=== PATIENT | male | born 1950 | race Caucasian/White ===

== ENCOUNTER → 2017-07-22 | Emergency (ER) | payer OTHER ==
[~2017-07-22] VITALS: Ht 167.6 cm; Wt 72.6 kg
[~2017-07-22] MED LIST: AMOX1TAB12 PO; ASPIR 8181 MG; AUGMENTIN1 TAB.SR2 PO; AVAPRO75 MG; CALCIUM1 TAB; CATAFLAM50 MG PO; CENTRUM TABLET1 TAB; DICLOFENAC SODI50 MG PO; LIPITOR20 MG; OMEPRAZOLE20 MG PO; OMEPRAZOLE40 MG PO; TRAMADOL HCL-AP1 TAB PO; TUSSI PRES-B L120 M1 PO; VITAMIN D400 UNI1; ZANTAC150 M3 PO
== END | disposition home or self-care (01) ==
LOC: ER 19:47
DX: S83.91XA Sprain of unspecified site of right knee, initial encounter (principal); X50.0XXA Overexertion from strenuous movement or load, initial encounter; Y93.01 Activity, walking, marching and hiking; Y92.488 Other paved roadways as the place of occurrence of the external cause; Y99.8 Other external cause status

== ENCOUNTER 2017-09-06 09:23 | Outpatient (CLI) | payer OTHER | END 2017-09-06 09:26 | disposition home or self-care (01) | LOC: SONOGRAMA 09:23 | DX: R31.9 Hematuria, unspecified (principal) ==

== ENCOUNTER 2018-01-22 12:18 | Emergency (ER) | payer OTHER ==
[~2018-01-22] VITALS: Ht 170.2 cm; Wt 72.6 kg
== END 2018-01-22 19:56 | disposition home or self-care (01) ==
LOC: ER 12:18
DX: M54.6 Pain in thoracic spine (principal)

== ENCOUNTER 2018-04-30 09:11 | Outpatient (CLI) | payer OTHER | END 2018-04-30 09:13 | disposition home or self-care (01) | LOC: SONOGRAMA 09:11 | DX: N40.0 Benign prostatic hyperplasia without lower urinary tract symptoms (principal); N28.1 Cyst of kidney, acquired; R31.9 Hematuria, unspecified ==

== ENCOUNTER 2018-06-05 14:41 | Outpatient (CLI) | payer OTHER | END 2018-06-05 17:00 | disposition home or self-care (01) | LOC: RAD 14:41 | DX: Z01.812 Encounter for preprocedural laboratory examination (principal); D68.8 Other specified coagulation defects ==

== ENCOUNTER 2018-07-04 15:28 | Emergency (ER) | payer OTHER ==
[~2018-07-04] VITALS: Ht 167.6 cm; Wt 72.6 kg
== END 2018-07-04 18:09 | disposition home or self-care (01) ==
LOC: ER 15:28
DX: S50.02XA Contusion of left elbow, initial encounter (principal); W18.39XA Other fall on same level, initial encounter; Y93.89 Activity, other specified; Y92.098 Other place in other non-institutional residence as the place of occurrence of the external cause; Y99.8 Other external cause status

== ENCOUNTER 2018-07-19 07:00 | Emergency (ER) | payer OTHER ==
[~2018-07-19] VITALS: Ht 167.6 cm; Wt 76.2 kg
== END 2018-07-19 09:25 | disposition home or self-care (01) ==
LOC: ER 07:00
DX: R60.0 Localized edema (principal)

== ENCOUNTER 2019-01-15 11:11 | Emergency (ER) | payer OTHER ==
[~2019-01-15] VITALS: Ht 167.6 cm; Wt 72.6 kg
== END 2019-01-15 12:55 | disposition home or self-care (01) ==
LOC: ER 11:11
DX: R00.2 Palpitations (principal)

== ENCOUNTER 2019-06-26 10:32 | Outpatient (CLI) | payer OTHER | END 2019-06-26 10:34 | disposition home or self-care (01) | LOC: SONOGRAMA 10:32 | DX: R31.29 Other microscopic hematuria (principal) ==

== ENCOUNTER 2019-09-11 08:37 | Emergency (ER) | payer OTHER ==
[~2019-09-11] VITALS: Ht 167.6 cm; Wt 73.5 kg
[2019-09-11] MEDS ORDERED: PROTONIX40 MG PO (08:48)
[2019-09-11] MEDS ORDERED: IBU400 MG PO (09:41)
[2019-09-11] MEDS ORDERED: AIRBORNE EFFER1 EACH PO (09:41)
== END 2019-09-11 10:18 | disposition home or self-care (01) ==
LOC: ER 08:37
DX: J02.8 Acute pharyngitis due to other specified organisms (principal)

== ENCOUNTER 2020-02-27 11:29 | Emergency (ER) | payer OTHER ==
[~2020-02-27] VITALS: Ht 167.6 cm; Wt 74.4 kg
[~2020-02-27 11:29] MED LIST changes: +AIRBORNE EFFER1 EACH PO; +IBU400 MG PO; +PROTONIX40 MG PO
[2020-02-27] MEDS ORDERED: CLONAZEPAM1 GM (12:05)
== END 2020-02-27 12:51 | disposition home or self-care (01) ==
LOC: ER 11:29
DX: F41.0 Panic disorder [episodic paroxysmal anxiety] (principal); I10 Essential (primary) hypertension

== ENCOUNTER → 2020-08-12 | Outpatient (CLI) | payer OTHER ==
[~2020-08-12] MED LIST changes: +CLONAZEPAM1 GM
== END | disposition home or self-care (01) ==
LOC: SONOGRAMA 08:54 → MAMO-SONO 10:30
PROVIDERS: ATTEND Urology
DX: Q61.01 Congenital single renal cyst (principal); N40.0 Benign prostatic hyperplasia without lower urinary tract symptoms; R31.21 Asymptomatic microscopic hematuria